=== PATIENT | female | born 1995 | race Hispanic/Latino ===

== ENCOUNTER 2019-12-22 23:29 | Observation (INO) | payer MEDICAID ==
[~2019-12-22] VITALS: Ht 154.9 cm; Wt 73.5 kg
[2019-12-22] MEDS ORDERED: PREN-196 PO (23:51)
[2019-12-23 00:09] LABS: APPEARANCE,URINE Cloudy (CLEAR); BILIRUBIN,URINE Negative (NEGATIVE); COLOR,URINE Yellow (YELLOW); GLUCOSE, URINE (UA) Negative (NEGATIVE); KETONES,URINE Negative (NEGATIVE); LEUKOCYTE ESTERASE ,URINE Trace (NEGATIVE); NITRATE,URINE Negative (NEGATIVE); OCCULT BLOOD,URINE Negative (NEGATIVE); PH,URINE 7.5 (5.0-8.0); PROTEIN,URINE Negative (NEGATIVE)
[2019-12-23 00:17] LABS: AMPHET/METH SCREEN,URINE NEGATIVE (NEGATIVE); BARBITURATE SCREEN, URINE NEGATIVE (NEGATIVE); BENZODIAZEPINES SCREEN,URINE NEGATIVE (NEGATIVE); CANNABINOID SCREEN,URINE NEGATIVE (NEGATIVE); COCAINE SCREEN,URINE NEGATIVE (NEGATIVE); OPIATE SCREEN,URINE NEGATIVE (NEGATIVE); PHENCYCLIDINE SCREEN,URINE NEGATIVE (NEGATIVE)
[2019-12-23 00:32] VITALS: BP 109/58
[2019-12-23 01:11] LABS: BACTERIA,URINE Few /HPF (None Seen); RBC,URINE 0-1 /HPF (0-1); WBC,URINE 0-1 /HPF (0-1)
[2019-12-23 01:12] LABS: FINE GRANULAR CASTS,URINE 0-2 /LPF (None Seen)
[2019-12-23] MEDS ORDERED: TERBUTALINE SULFATE VIAL 1MG/ML SQ SCH (01:15)
[2019-12-23] MEDS ORDERED: LACTATED RINGERS 1000ML 1,000 ML IV SCH (01:15)
== END 2019-12-23 03:05 | disposition home or self-care (01) ==
LOC: EDH 23:29 → LDH 23:51
DX: O26.893 Other specified pregnancy related conditions, third trimester (principal); N89.8 Other specified noninflammatory disorders of vagina; Z3A.34 34 weeks gestation of pregnancy
CPT/HCPCS: 80305; 81001; 82120 ×2; 96372; 99284; G0378 ×3; J3105; J7120 ×2; 96360

== ENCOUNTER 2020-01-21 11:56 | Observation (INO) | payer MEDICAID ==
[~2020-01-21] VITALS: Ht 154.9 cm; Wt 74.8 kg
[~2020-01-21 11:56] MED LIST: PREN-196 PO
== END 2020-01-21 14:04 | disposition home or self-care (01) ==
LOC: LDH 11:56
PROVIDERS: ADMIT Specialist; ATTEND Specialist
DX: O26.893 Other specified pregnancy related conditions, third trimester (principal); Z3A.38 38 weeks gestation of pregnancy
CPT/HCPCS: 59025; 76819; G0378

== ENCOUNTER 2020-01-24 18:08 | Inpatient (IN) | payer MEDICAID ==
[~2020-01-24] VITALS: Ht 154.9 cm; Wt 74.4 kg
[2020-01-24 19:22] LABS: APPEARANCE,URINE Clear (CLEAR); BILIRUBIN,URINE Negative (NEGATIVE); COLOR,URINE Yellow (YELLOW); GLUCOSE, URINE (UA) Negative (NEGATIVE); KETONES,URINE 15 mg/dL (NEGATIVE); LEUKOCYTE ESTERASE ,URINE Trace (NEGATIVE); NITRATE,URINE Negative (NEGATIVE); OCCULT BLOOD,URINE Negative (NEGATIVE); PROTEIN,URINE Negative (NEGATIVE)
[2020-01-24 19:30] VITALS: BP 110/69
[2020-01-24 19:32] LABS: BACTERIA,URINE Few /HPF (None Seen); CALCIUM OXALATE CRYSTALS,UR Few /LPF (None Seen); RBC,URINE 0-1 /HPF (0-1); SQUAMOUS EPITHELIAL CELL,UR Few /HPF (0-2)
[2020-01-24 19:34] LABS: MUCUS,URINE Few LPF (None Seen)
[2020-01-24] MEDS ORDERED: MISOPROSTOL 100 MCG TABLET VG PRN (20:00)
[2020-01-24 20:12] LABS: HEMATOCRIT 31.8 % (36-48); MEAN CORPUSCULAR HEMOGLOBIN 27.6 pg (27.0-33.0); MEAN CORPUSCULAR HGB CONC 32.1 g/dL (32.0-36.0); MEAN CORPUSCULAR VOLUME 86.2 fL (79-99); PLATELET COUNT (AUTO) 301 K/uL (130-400); RED BLOOD CELL COUNT(AUTO) 3.69 MIL/uL (4.00-5.50); RED CELL DISTRIBUTION WIDTH 13.2 % (11.0-15.5); WHITE BLOOD COUNT (AUTO) 10.2 K/uL (4.8-10.8)
[2020-01-24] MEDS: LACTATED RINGERS 1000ML 1,000 ML IV PRN ×2 (20:25→22:12)
[2020-01-24 20:58] LABS: AMPHET/METH SCREEN,URINE NEGATIVE (NEGATIVE); BARBITURATE SCREEN, URINE NEGATIVE (NEGATIVE); BENZODIAZEPINES SCREEN,URINE NEGATIVE (NEGATIVE); CANNABINOID SCREEN,URINE NEGATIVE (NEGATIVE); COCAINE SCREEN,URINE NEGATIVE (NEGATIVE); OPIATE SCREEN,URINE NEGATIVE (NEGATIVE); PHENCYCLIDINE SCREEN,URINE NEGATIVE (NEGATIVE)
[2020-01-25] MEDS ORDERED: MEPERIDINE-PF 50 MG/ML SYG ONE (00:28)
[2020-01-25] MEDS ORDERED: MEPERIDINE-PF 50 MG/ML SYG IVP PRN (00:30)
[2020-01-25] MEDS ORDERED: PROMETHAZINE HCL 25 MG/ML 1ML AMPULE IM PRN ×2 (00:30→13:45)
[2020-01-25] MEDS ORDERED: OXYTOCIN-LR 20 UNITS/1000 ML 1,000 ML IV ONE (04:40)
[2020-01-25] MEDS ORDERED: OXYTOCIN 10 USP UNITS/ML 20 UNIT in LACTATED RINGERS 1000ML 1,000 ML IV SCH (05:00)
[2020-01-25] MEDS: LACTATED RINGERS 1000ML 1,000 ML IV PRN (05:46)
[2020-01-25] MEDS ORDERED: NALOXONE HCL 0.4 MG/1 ML ML IV PRN (07:45)
[2020-01-25] MEDS ORDERED: EPHEDRINE SULFATE 50 MG/ML AMPULE IVP PRN (07:45)
[2020-01-25] MEDS ORDERED: LACTATED RINGERS 500 ML 500 ML IV PRN (07:45)
[2020-01-25] MEDS ORDERED: FENTANYL CITRATE PF 50 MCG/1 ML 2ML VIAL ONE (08:21)
[2020-01-25] MEDS ORDERED: CEFAZOLIN SODIUM 1 GM VIAL ONE (12:24)
[2020-01-25] MEDS ORDERED: CEFAZOLIN SODIUM 1 GM VIAL IVP PRN (12:30)
[2020-01-25] MEDS ORDERED: CEFAZOLIN SODIUM 1 GM VIAL IVP ONE (12:41)
[2020-01-25] MEDS ORDERED: PROPOFOL 10 MG/ML 20ML VIAL IV ONE ×2 (12:44→12:49)
[2020-01-25] MEDS ORDERED: ROCURONIUM 10MG/1ML SYR 10 MG/ML ML IV ONE (12:50)
[2020-01-25] MEDS ORDERED: NEOSTIGMINE 5MG/5ML SYR IV ONE (13:03)
[2020-01-25] MEDS ORDERED: MEPERIDINE-PF 25 MG/ML SYG ONE (13:33)
[2020-01-25] MEDS ORDERED: SODIUM CHLORIDE 0.9% 10 ML VIAL IVP PRN (13:45)
[2020-01-25] MEDS ORDERED: OXYTOCIN-LR 20 UNITS/1000 ML 1,000 ML IV PRN (13:45)
[2020-01-25] MEDS ORDERED: MEPERIDINE-PF 75 MG/ML SYG IM PRN (13:45)
[2020-01-25] MEDS ORDERED: DEXTROSE 5 %-0.45 % NACL 1,000 ML IV PRN (13:45)
[2020-01-25 15:00] VITALS: BP 127/72
[2020-01-25] MEDS ORDERED: DiphenhydrAMINE HCL 50 MG/ML VIAL IVP PRN (16:15)
[2020-01-25] MEDS ORDERED: ONDANSETRON HCL 4 MG/2 ML VIAL IVP PRN (16:15)
[2020-01-25] MEDS ORDERED: NALOXONE HCL 0.4 MG/1 ML ML IVP PRN ×3 (16:15)
[2020-01-25 16:38] LABS: HEMATOCRIT 23.8 % (36-48)
[2020-01-25 19:18] VITALS: BP 99/67
[2020-01-25 23:33] VITALS: BP 107/57
--- NOTE | 2020-01-26 02:30 | NUR ---
EPIDURAL DC EPIDURAL DISCONTINUED ORDERED. PATIENT ASSISTED INTO HIGH FOWLERS POSITION. EPIDURAL CATHETER REMOVED, BLUE TIP INTACT. PATIENT TOLERATED WELL. BANDAGE AND DRESSING APPLIED. PATIENT ASSISTED BACK INTO SEMI FOWLERS POSITION.
[2020-01-26] MEDS ORDERED: MEPERIDINE-PF 100 MG/ML SYG ONE (02:35)
[2020-01-26 03:32] VITALS: BP 96/50
--- NOTE | 2020-01-26 06:40 | NUR ---
HUFF CATHETER DISCONTINUED HUFF CATHETER DISCONTINUED. PATIENT TOLERATED WELL. PATIENT SCDs REMOVED. PATIENT TOLD TO CALL FOR ASSISTANCE WHEN NEEDING TO VOID.
[2020-01-26 07:13] LABS: HEMATOCRIT 22.4 % (36-48); MEAN CORPUSCULAR HEMOGLOBIN 27.7 pg (27.0-33.0); MEAN CORPUSCULAR HGB CONC 31.7 g/dL (32.0-36.0); MEAN CORPUSCULAR VOLUME 87.5 fL (79-99); PLATELET COUNT (AUTO) 225 K/uL (130-400); RED BLOOD CELL COUNT(AUTO) 2.56 MIL/uL (4.00-5.50); RED CELL DISTRIBUTION WIDTH 13.3 % (11.0-15.5); WHITE BLOOD COUNT (AUTO) 12.2 K/uL (4.8-10.8)
[2020-01-26 07:26] VITALS: BP 91/57
[2020-01-26 08:10] LABS: HEPATITIS Bs ANTIGEN SCREEN P Negative (Negative)
[2020-01-26] MEDS ORDERED: ACETAMINOPHEN EXTRA STRENGTH 500 MG TABLET PO PRN (08:15)
[2020-01-26] MEDS ORDERED: LANOLIN 30GM OINTMENT TP PRN (08:15)
[2020-01-26] MEDS ORDERED: IBUPROFEN 600 MG TABLET PO PRN (08:15)
[2020-01-26] MEDS ORDERED: BISACODYL 10 MG SUPP.RECT RC PRN (08:15)
[2020-01-26] MEDS ORDERED: HYDROCODONE/ACETAMINOPHEN 5/325 MG TAB PO PRN (08:15)
[2020-01-26] MEDS: DOCUSATE SODIUM 100 MG CAP PO SCH ×2 (08:19→20:23)
[2020-01-26] MEDS: SIMETHICONE 80 MG TAB.CHEW PO PRN ×3 (08:19→20:23)
[2020-01-26] MEDS: ACETAMINOPHEN-CODEINE 300/30MG TAB PO PRN ×2 (08:21→17:28)
[2020-01-26 11:45] VITALS: BP 93/57
--- NOTE | 2020-01-26 11:45 | NUR ---
PT AMBULATING IN HALLWAY. NO C/O DIZZINESS REPORTED. STEADY GAIT NOTED.
[2020-01-26] MEDS ORDERED: IBUPROFEN 800 MG TAB PO SCH (13:45)
--- NOTE | 2020-01-26 13:51 | NUR ---
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 This is first child for couple, son HIREN EDEN. Couple lives with pt's grandmother Drea Boss [phone]. Pt is not working, has medicaid WIC and Food stamps assistance. BF works at [employer]. Couple has basic items for NB, including a car seat and Dr Jeffrey will follow baby after dc. Couple has good family support and pt will have help with recovery and baby after dc. 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 Pt denies that she smoked during and states she does not plan to restart since she wants to breast feed baby. SW offered substance abuse resources and pt denied need. Pt was negative at delivery and no UDS or meconium was done on baby. Pt denies any hx of abuse, domestic violence, CPS, legal, or mental health issues. Addendum: 01/26/20 at 1405 by MARVIN WORKMAN Amended: Links added.
[2020-01-26 17:00] VITALS: BP 96/58
[2020-01-26 19:20] VITALS: BP 104/52
[2020-01-26] MEDS: IBUPROFEN 800 MG TAB PO SCH (20:23)
[2020-01-26 23:34] VITALS: BP 104/57
[2020-01-27] MEDS: IBUPROFEN 800 MG TAB PO SCH ×2 (03:41→12:56)
[2020-01-27 03:54] VITALS: BP 97/53
[2020-01-27 06:36] LABS: HEMATOCRIT 23.9 % (36-48); MEAN CORPUSCULAR HEMOGLOBIN 28.1 pg (27.0-33.0); MEAN CORPUSCULAR HGB CONC 31.8 g/dL (32.0-36.0); MEAN CORPUSCULAR VOLUME 88.5 fL (79-99); PLATELET COUNT (AUTO) 248 K/uL (130-400); RED CELL DISTRIBUTION WIDTH 13.8 % (11.0-15.5); WHITE BLOOD COUNT (AUTO) 9.4 K/uL (4.8-10.8)
[2020-01-27 07:23] VITALS: BP 90/52
[2020-01-27] MEDS: DOCUSATE SODIUM 100 MG CAP PO SCH (09:42)
[2020-01-27] MEDS: SIMETHICONE 80 MG TAB.CHEW PO PRN (09:42)
[2020-01-27] MEDS: ACETAMINOPHEN-CODEINE 300/30MG TAB PO PRN ×2 (09:43→13:48)
[2020-01-27 11:23] VITALS: BP 100/58
--- NOTE | 2020-01-27 15:00 | NUR ---
PATIENT LEFT UNIT VIA WHEELCHAIR WITH BABY IN HAND. PERSONAL VEHICLE USED FOR TRANSPORTATION. BABY SECURE IN CARSEAT. NO COMPLAINTS OR CONCERNS ADDRESSED FROM PATIENT ON DISCHARGE.
== END 2020-01-27 15:00 | disposition home or self-care (01) | DRG 540 ==
LOC: LDH 18:08 → WSH 01-25 14:59
PROVIDERS: ADMIT Specialist; ATTEND Specialist
PROC: 3E0334Z Introduction of Serum, Toxoid and Vaccine into Peripheral Vein, Percutaneous Approach (ICD-10-PCS; 2020-01-25)
PROC: 10D00Z1 Extraction of Products of Conception, Low, Open Approach (ICD-10-PCS; principal; 2020-01-25 12:30)
DX: O77.9 Labor and delivery complicated by fetal stress, unspecified (principal); K83.1 Obstruction of bile duct; O26.62 Liver and biliary tract disorders in childbirth; O26.893 Other specified pregnancy related conditions, third trimester; Z37.0 Single live birth; Z67.11 Type A blood, Rh negative; Z3A.39 39 weeks gestation of pregnancy
CPT/HCPCS: 36415; 59025; 59510; 76819; 80305; 81001; 83033; 85014; 85018; 85027; 86592; 86850; 86900; 86901; 87340; A4314; A4344; G0378; J0690; J2175; J2550; J2590; J2704; J2710; J2791; J3010; J3490; J7120

== ENCOUNTER → 2020-12-21 | Outpatient (CLI) | payer MEDICAID | END | disposition home or self-care (01) | LOC: RAH 10:08 | PROVIDERS: ATTEND Internal Medicine Gastroenterology | DX: R11.2 Nausea with vomiting, unspecified (principal); R10.9 Unspecified abdominal pain | CPT/HCPCS: 78264; A9541 ==